=== PATIENT | female | born 1995 | race Caucasian/White ===

== ENCOUNTER 2018-02-09 15:56 | Emergency (ER) | payer MEDICAID ==
[2018-02-09] MEDS: traMADol 50 MG TAB PO (16:33)
== END 2018-02-09 17:22 | disposition home or self-care (01) ==
LOC: FTE 15:56
DX: M25.512 Pain in left shoulder (principal)
CPT/HCPCS: 73030; 99283-25

== ENCOUNTER 2018-03-22 22:55 | Emergency (ER) | payer MEDICAID, OTHER ==
[2018-03-23 01:40] LABS: ADD MAN DIFF? NO
[2018-03-23 01:41] LABS: BASOPHIL # 0.1 10^3/ul (0.0-0.1); BASOPHILS % 0.6 % (0.0-2.0); EOSINOPHILS # 0.3 10^3/ul (0.0-0.5); EOSINOPHILS % 3.4 % (0.0-7.0); HEMATOCRIT 40.8 % (37.0-47.0); HEMOGLOBIN 13.3 g/dl (12.0-16.0); LYMPHOCYTES % 36.7 % (15.0-51.0); MEAN CORPUSCULAR HEMOGLOBIN 29.4 pg (29.0-33.0); MEAN CORPUSCULAR HGB CONC 32.6 g/dl (32.0-37.0); MEAN CORPUSCULAR VOLUME 90.3 fl (82.0-101.0); MEAN PLATELET VOLUME 9.2 fl (7.4-10.4); MONOCYTE # 0.5 10^3/ul (0.3-0.9); MONOCYTES % 6.4 % (0.0-11.0); NEUTROPHIL # 4.3 10^3/ul (1.6-7.5); NEUTROPHILS % 52.7 % (39.0-77.0); PLATELET COUNT 287 10^3/UL (140-415); RED BLOOD COUNT 4.52 10^6/ul (4.20-5.40); RED CELL DISTRIBUTION WIDTH 12.8 % (11.5-14.5)
[2018-03-23 01:41] LABS: WHITE BLOOD COUNT 8.2 10^3/ul (4.8-10.8)
[2018-03-23 02:11] LABS: ADD UMIC YES; UR ASCORBIC ACID NEGATIVE (NEGATIVE); UR BACTERIA FEW /HPF (NONE SEEN); UR BILIRUBIN (Dip) NEGATIVE (NEGATIVE); UR BLOOD (Dip) NEGATIVE (NEGATIVE); UR CLARITY CLOUDY (CLEAR); UR COLOR RED (YELLOW); UR GLUCOSE (Dip) NEGATIVE (NEGATIVE); UR KETONES (Dip) NEGATIVE (NEGATIVE); UR LEUKOCYTE ESTERASE (Dip) 3+ Leu/ul (NEGATIVE); UR MUCUS FEW /HPF (NONE SEEN); UR NITRITE (Dip) NEGATIVE (NEGATIVE); UR RBC 2 /HPF (0-5); UR SPECIFIC GRAVITY (Dip) 1.017 (1.003-1.030); UR SQUAMOUS EPITHELIAL CELL MODERATE /HPF (FEW); UR TOTAL PROTEIN (Dip) NEGATIVE (NEGATIVE); UR UROBILINOGEN (Dip) NEGATIVE (NEGATIVE); UR WBC 28 /HPF (0-5)
[2018-03-23 02:33] LABS: ANION GAP 11 (8-16); BLOOD UREA NITROGEN 11 mg/dl (7-20); CALCIUM 9.5 mg/dl (8.4-10.2); CARBON DIOXIDE 28 mmol/L (21-31); CHLORIDE 108 mmol/L (97-110); CREATININE 0.74 mg/dl (0.44-1.00); GLUCOSE 99 mg/dl (70-220); POTASSIUM 3.9 mmol/L (3.5-5.1); SODIUM 143 mmol/L (135-144)
== END 2018-03-23 03:59 | disposition home or self-care (01) ==
LOC: FTE 22:55
DX: N30.01 Acute cystitis with hematuria (principal); R55 Syncope and collapse
CPT/HCPCS: 36415; 70450; 80048; 81001; 81025; 85025; 93005; 99285-25